=== PATIENT | male | born 1965 | race Caucasian/White ===

== ENCOUNTER → 2018-09-30 | Outpatient (CLI) | payer OTHER ==
[~2018-09-30] MED LIST: NOHOMEMEDICATIONS; PERCOCET PO
== END ==
LOC: CAT 15:18
DX: Z13.6 Encounter for screening for cardiovascular disorders (principal)

== ENCOUNTER 2019-06-22 14:49 | Emergency (ER) | payer BC ==
[~2019-06-22] VITALS: Ht 188 cm; Wt 136.1 kg
[2019-06-22] MEDS ORDERED: TOPROL XL25 MG PO (14:53)
[2019-06-22] MEDS ORDERED: ASA81BEC PO (14:53)
[2019-06-22] MEDS ORDERED: ATORVASTATIN CA10 MG PO (14:53)
[2019-06-22] MEDS ORDERED: BENAZEPRIL HCL40 MG PO (14:53)
[2019-06-22] MEDS ORDERED: TRAMADOL 50 MG50 MG PO (16:42)
[2019-06-22] MEDS ORDERED: NAPROSYN500 MG PO (16:42)
[2019-06-22 17:07] VITALS: BP 175/91
== END 2019-06-22 17:08 | disposition home or self-care (01) ==
LOC: ER 14:49
DX: S83.91XA Sprain of unspecified site of right knee, initial encounter (principal); M79.661 Pain in right lower leg; K21.9 Gastro-esophageal reflux disease without esophagitis; X58.XXXA Exposure to other specified factors, initial encounter; Y93.89 Activity, other specified; Y92.89 Other specified places as the place of occurrence of the external cause; Y99.0 Civilian activity done for income or pay